=== PATIENT | male | born 1990 | race Caucasian/White ===

== ENCOUNTER 2021-11-08 20:04 | Emergency (ER) | payer OTHER ==
[~2021-11-08 20:04] MED LIST: PYRIDIUM100 MG PO; ZOFRAN ODT 4 MG4 MG SL
== END 2021-11-08 22:15 | disposition home or self-care (01) ==
LOC: ER1 20:04
DX: M54.50 Low back pain, unspecified (principal); M25.552 Pain in left hip; W01.0XXA Fall on same level from slipping, tripping and stumbling without subsequent striking against object, initial encounter; Y92.009 Unspecified place in unspecified non-institutional (private) residence as the place of occurrence of the external cause
CPT/HCPCS: 72131; 73080; 73502; 96374; 99284; J1885